=== PATIENT | female | born 1950 | race Hispanic/Latino ===

== ENCOUNTER 2018-10-27 07:33 | Day surgery (SDC) | payer MEDICARE, MEDICAID ==
[2018-10-24 07:43] VITALS: BMI 17.4
[2018-10-27 09:05] VITALS: RESP 18; O2SAT 100
[2018-10-27] MEDS ORDERED: Propofol 10 mg/ml Inj (20 ML) ONE (10:08)
[2018-10-27] MEDS ORDERED: Midazolam 2 MG/2 ML VIAL ONE (10:08)
[2018-10-27] MEDS ORDERED: Esmolol 100 mg/10ml Inj IV ONE (10:15)
[2018-10-27] MEDS ORDERED: Lactated Ringer's 1,000 ML IV ONE (10:46)
[2018-10-27] MEDS ORDERED: HYDROmorphone 0.5 mg/0.5 ml ISec IVP PRN (10:51)
[2018-10-27 12:06] VITALS: BP 165/60; PULSE 73; TEMP 98
--- NOTE | 2018-10-27 21:28 | OP ---
PROCEDURE DATE: 10/27/2018 SURGEON: Ashwini Rodriguez MD VAL[place] CUTTER: None. TYPE OF ANESTHESIA: General LMA. PREOPERATIVE DIAGNOSES: Postmenopausal bleeding, cervical stenosis, endometrial polyp. POSTOPERATIVE DIAGNOSES: Post menopausal bleeding, cervical stenosis, endometrial polyp, submucosal myoma. OPERATION: Hysteroscopic myomectomy, polypectomy, dilation and curettage. OPERATIVE FINDINGS: Anteverted uterus, 5 to 7 weeks' size, cervical stenosis. Bilateral ostia visualized with submucosal mass noted along the anterior uterine wall, resected using MyoSure device. Endocervical polypoid type tissue that was removed. Bilateral ostia visualized. ESTIMATED BLOOD LOSS: 5 mL. BLOOD PRODUCTS: None. COMPLICATIONS: None. DESCRIPTION OF PROCEDURE: The patient was taken to the operating room where she was given general anesthesia. Once it was found to be adequate, she was positioned on the operating table in dorsal lithotomy position with the legs supported using stirrups. The patient was prepped and draped in the usual sterile fashion. Bimanual exam was performed. A sterile speculum was inserted into the vagina. Endocervical curettings were obtained with a Kevorkian curette and sent to Pathology on [facility]. A single-tooth tenaculum was placed on the anterior lip of the cervix. Endocervical curettings were obtained with a Kevorkian curette and sent to Pathology on [facility]. The uterus was then sounded. After being carefully dilated, the cervix was sequentially dilated to allow for introduction, and there was endocervical clot that was removed and sent to Pathology on [facility]. The hysteroscope was then advanced. Using normal saline as distention media, bilateral ostia visualized. Submucosal myoma noted at the anterior side that was carefully dissected with MyoSure device and this was removed. Gentle curettage was done. All instruments were removed. There was good hemostasis at the tenaculum puncture site. At the end of the procedure, all needles, sponge, and instrument counts were noted as correct x2. The patient tolerated the procedure well and was transferred to the recovery room in stable condition. Ashwini Rodriguez MD
== END 2018-10-27 13:33 | disposition home or self-care (01) ==
LOC: C.SDS 07:33
PROVIDERS: ATTEND Obstetrics & Gynecology
DX: N84.9 Polyp of female genital tract, unspecified (principal); R93.89 Abnormal findings on diagnostic imaging of other specified body structures; D25.0 Submucous leiomyoma of uterus
CPT/HCPCS: 58558; 88305; J2001; J2250; J2405; J2704; J3010; J7120